=== PATIENT | female | born 1955 | race Caucasian/White ===

== ENCOUNTER → 2018-10-17 08:28 | Outpatient (CLI) | payer MEDICARE ==
[2015-12-07 13:44] VITALS: BMI 36.2
[~2018-10-17 08:28] MED LIST: ALDACTONE25 MG PO; ATARAX 25 MG TA25 MG PO; CARAFATE1 G PO; CARDURA2 MG PO; CATAPRES0.1 MG PO; CHRONULAC30 ML PO; EFFEXOR XR75 MG PO; GABAPENTIN100 MG PO; HYDROCODONE-APA1 TAB; HYDROCODONE-APA1 TAB PO; IPRAT-ALBUT 0.5-3 ML UPD; K-DUR20 MEQ; K-DUR20 MEQ PO; LASIX20 MG PO; LEVOXYL100 MCG PO; METOPROLOL TART50 MG PO; PATANOL 0.1 % OP5 ML EACH EYE; PRAVACHOL20 MG PO; PROAIR HFA8.5 GM INH; PROTONIX40 MG PO; SYNTHROID125 MCG PO; SYNTHROID75 MCG PO; TRAZODONE HCL150 MG PO
== END | disposition home or self-care (01) ==
LOC: D.US 10-08 07:30
DX: K76.9 Liver disease, unspecified (principal)

== ENCOUNTER → 2019-08-03 12:29 | Outpatient (CLI) | payer MEDICARE ==
[2015-12-07 13:44] VITALS: BMI 36.2
== END | disposition home or self-care (01) ==
LOC: D.MRI 12:29
PROVIDERS: ATTEND Family Medicine
DX: J45.909 Unspecified asthma, uncomplicated (principal)

== ENCOUNTER → 2019-08-19 13:04 | Outpatient (CLI) | payer MEDICARE ==
[2015-12-07 13:44] VITALS: BMI 36.2
== END | disposition home or self-care (01) ==
LOC: D.CT 08-17 09:30 → D.MRI 08-17 10:00 → D.CT 13:04
PROVIDERS: ATTEND Family Medicine
DX: I73.9 Peripheral vascular disease, unspecified (principal); M86.10 Other acute osteomyelitis, unspecified site

== ENCOUNTER 2019-09-30 10:21 | Outpatient (CLI) | payer MEDICARE ==
[~2019-09-30] VITALS: Ht 157.5 cm; Wt 61.4 kg
--- NOTE | ~2019-09-30 | HEMODYNAMI ---
PATIENT:LIBRADO CULVER MEDICAL RECORD: [id number] : 59 LOCATION:[facility] ADMISSION DATE: 09/30/19 Generatedon:09/30/201914:42 Patient name: LIBRADO CULVER Patient #: [id number] SSN: : 1955 Date of study: 09/30/2019 Page: Of Hemodynamic Procedure Report Patient Data Patient Demographics Procedure consent was obtained First Name: LIBRADO Gender: Female Last Name: PALOMO : 1955 [facility] Initial: OBIE Age: 63 year(s) Patient #: [id number] Race: Unknown Additional ID: [id number] Contact details Address: [address] [place] [address] State: [place] City: [facility] Zip code: [address] Past Medical History Allergies Allergen Reaction Date Comments Reported Other allergy 09/30/2019 penicillin, codeine, aspirin, latex, steroids Admission Admission Data Admission Date: 09/30/2019 Admission Time: 10:21 Procedure Procedure Types Cath Procedure Peripheral Cath Diagnostic Procedure Abd/Extremity Extremities Bilat Lower Extremity Procedure Description Procedure Date Procedure Date: 09/30/2019 Procedure Start Time: 13:55 Procedure End Time: 14:42 Procedure Staff Name Function Moris Sommers MD Performing Physician SHEILA JOHN RT Monitor Sada Contreras RN Nurse Radha Ely RN Nurse Santi Green RT Scrub Procedure Data Cath Procedure Fluoroscopy Diagnostic fluoroscopy Total fluoroscopy Time: 5.4 time: 5.4 min min Diagnostic fluoroscopy Total fluoroscopy dose: 512 dose: 512 mGy mGy Entry Location Entry Primary Successful Side Size (Fr) Upsize Upsize Entry Closure S uccessful Closure Location 1 (Fr) 2 (Fr) Remarks Device Remarks Femoral Right 6 Fr Mynx artery Mid-Length Child Support Officer 6Fr/7Fr Femoral Left 6 Fr Mynx artery Mid-Length Child Support Officer 6Fr/7Fr Diagnostic catheters Device Type Used For End Catheter Placement DIAGNOSTIC Pigtail 5Fr catheter ([id number]) Merit Impress KA 2 5Fr 40CM catheter ([id number]) Procedure Medications Medication Administration Route Dosage Heparin Flush Bag added to field 3 bags (1000units/500ml NS) Lidocaine 1% added to field 20 Versed I.V. 1 mg Fentanyl I.V. 50 mcg Versed I.V. 1 mg Fentanyl I.V. 50 mcg Heparin Bolus I.V. 3000 units Fentanyl I.V. 50 mcg Versed I.V. 0.5 mg Hemodynamics Rest Heart Rate: 71 (bpm) Snapshots Pre Cath Intra NCS Post Cath Vital Signs Time Heart Resp SPO2 etCO2 NIBP (mmHg) Rhythm Pain Sedation Rate (ipm) (%) (mmHg) Status Level (bpm) 13:42:01 62 19 100 40.6 137/75(115) NSR 0 (11) 10(A) , No pain 13:46:15 61 12 100 39.1 144/67(114) NSR 0 (11) 10(A) , No pain 13:50:23 59 10 100 39.1 124/100(115) NSR 0 (11) 10(A) , No pain 13:54:31 62 13 100 40.6 134/73(121) NSR 0 (11) 8(A) , No pain 13:58:45 71 11 99 33.8 107/66(100) NSR 0 (11) 8(A) , No pain 14:02:51 63 11 98 32.3 115/62(80) NSR 0 (11) 8(A) , No pain 14:07:00 68 11 96 24 98/56(72) NSR 0 (11) 8(A) , No pain 14:11:00 63 11 96 29.3 99/60(91) NSR 0 (11) 8(A) , No pain 14:15:04 66 12 96 33 108/58(74) NSR 0 (11) 8(A) , No pain 14:19:12 57 11 96 30 100/54(67) NSR 0 (11) 8(A) , No pain 14:24:11 70 32 98 41.3 122/62(114) NSR 0 (11) 8(A) , No pain 14:28:19 62 12 99 42.1 142/72(130) NSR 0 (11) 8(A) , No pain 14:32:32 75 11 99 48.1 144/70(111) NSR 0 (11) 8(A) , No pain 14:36:44 72 9 98 45.1 130/81(92) NSR 0 (11) 10(A) , No pain 14:40:52 63 8 100 41.4 143/76(104) NSR 0 (11) 10(A) , No pain Medications Time Medication Route Dose Verified Delivered Reason Notes Effec tiveness by by 13:49:12 Heparin Flush added 3 Moris Subramanian used for Bag to bags Matthieu Sommers procedure (1000units/500ml field MD SHEPARD NS) 13:49:31 Lidocaine 1% added 20ml Moris Subramanian used for to vial Matthieumary Sommers procedure field MD SHEPARD 13:53:53 Versed I.V. 1 mg Moris Tomlin for Matthieumary Contreras RN sedation 13:54:08 Fentanyl I.V. 50 Moris Arti for mcg Matthieumary Medinaer RN sedation 14:00:01 Versed I.V. 1 mg Moris Tmolin for Matthieu Contreras RN sedation 14:00:09 Fentanyl I.V. 50 Moris Arti for mcg Matthieumary Medinaer RN sedation 14:04:15 Heparin Bolus I.V. 3000 Moris Tomlin used for units Matthieumary Contreras pension agent 14:32:40 Fentanyl I.V. 50 Moris Arti for mcg Matthieumary Medinaer RN sedation 14:32:49 Versed I.V. 0.5 Moris Arti for mg Matthieumary Medinaer RN sedation Procedure Log Time Note 13:29:36 Sada Contreras RN sent for patient. Start room use. 13:29:45 Time tracking: Regular hours (M-F 7:00 - 5:00) 13:29:50 Plan of Care:Hemodynamics will remain stable., Cardiac rhythm will remain stable., Comfort level will be maintained., Respiratory function will remain adequate., Patient/ family verbilizes understanding of procedure., Procedure tolerated without complication., Recovers from procedure without complications.. 13:29:56 Patient received from Outpatients to IR Alert and oriented. Tansferred to table in Supine position. 13:29:58 Signed procedure consent form obtained from patient. 13:30:00 Warm blankets applied, and messi hugger turned on for patient comfort. 13:30:00 Correct patient and procedure confirmed by team. 13:30:01 ECG and BP/O2 sat monitors applied to patient. 13:30:01 - 13:30:06 H&P Date Dictated: 09/30/2019 H&P Addendum completed by physician on day of procedure. (MUST COMPLETE FOR ALL OUTPATIENTS). 13:30:08 Pre-procedure instructions explained to patient. 13:30:09 Pre-op teaching completed and patient verbalized understanding. 13:30:11 Patient NPO since Midnight. 13:31:13 Patient allergic to Other allergypenicillin, codeine, aspirin, latex, steroids 13:31:16 Is the patient allergic to Iodine/contrast media? No. 13:32:06 Is patient on blood thinner?No 13:32:09 Patient diabetic? No. 13:32:11 - 13:32:13 ----Pre-sedation anethsthesia assessment.---- 13:32:17 Snore? Yes 13:32:18 Sleep apnea? No 13:32:19 Deviated septum? No 13:32:19 Opens mouth fully? Yes 13:32:21 Sticks out tongue? Yes 13:32:23 Airway obstruction? No ? 13:32:26 Dentures? No ? 13:33:02 IV patent on arrival in left forearm with 0.9% NaCl at [facility]. 13:33:13 Pre procedure: left dorsailis pedis pulse Doppler 13:33:19 Pre procedure: left posterior tibial pulse Doppler 13:33:23 Pre procedure: right posterior tibial pulse Doppler 13:33:29 Pre procedure: right dorsailis pedis pulse 0-Absent 13:34:09 Bilateral groins area was prepped with chlora-prep and draped in steril e fashion 13:34:11 - 13:34:14 Use device set IR Diagnostic 13:34:16 Tegaderm 4 x 4 ([id number]) opened to sterile field. 13:34:16 Sterile Angiographic Pack opened to sterile field. 13:34:17 Bag Decanter (2002S) opened to sterile field. 13:34:20 ACIST Hand Control (31554) opened to sterile field. 13:34:21 ACIST Manifold (64161) opened to sterile field. 13:34:22 ACIST Syringe (24088) opened to sterile field. 13:34:52 A DIAGNOSTIC Pigtail 5Fr catheter ([id number]) opened to sterile field. 13:34:54 BENTSON 145cm wire ([id number]) opened to sterile field. 13:34:55 MICROPUNCTURE 4FR Ravti (Z88379) opened to sterile field. 13:35:15 - 13:40:47 Vital chart was started 13:40:49 Baseline sample Acquired. 13:40:50 Full Disclosure recording started 13:49:12 Heparin Flush Bag (1000units/500ml NS) 3 bags added to field was administered by Moris Sommers MD; used for procedure; Verbal order read back and verified. 13:49:31 Lidocaine 1% 20ml vial added to field was administered by Moris fairchild MD; used for procedure; Verbal order read back and verified. 13:49:34 SHEATH 6FR Brite Tip 35cm (008394Z) opened to sterile field. 13:49:34 SHEATH 6FR Brite Tip 35cm ([id number]) opened to sterile field. 13:49:37 - 13:49:41 Physician arrived 13:50:17 --------ALL STOP TIME OUT------ 13:51:13 Bilateral groins site verified by team. 13:51:47 3b) 30-44 Moderately reduced kidney function. 13:52:19 - 13:53:53 Versed 1 mg I.V. was administered by Sada Contreras RN; for sedation; Verbal order read back and verified. 13:54:08 Fentanyl 50 mcg I.V. was administered by Sada Contreras RN; for sedation; Verbal order read back and verified. 13:55:11 Procedure started. 13:55:23 Local anesthetic to right femoral artery with Lidocaine 1% by Moris Sommers MD.INITIAL ACCESS ONLY 13:56:34 Access obtained with 4Fr micropunture. 13:56:48 ZHENG 260 wire ([id number]) opened to sterile field. 13:56:49 ZHENG 260 wire (O30601) opened to sterile field. 13:59:48 AMPLATZ Super Stiff 75cm wire ([id number]) opened to sterile field. 14:00:01 Versed 1 mg I.V. was administered by Sada Contreras RN; for sedation; Verbal order read back and verified. 14:00:09 Fentanyl 50 mcg I.V. was administered by Sada Contreras RN; for sedation; Verbal order read back and verified. 14:00:35 Local anesthetic to left femerol artery with Lidocaine 1% by Moris Sommers MD.ADDITIONAL ACCESS 14:01:11 A 6 Fr Mid-Length sheath was inserted into the Right Femoral artery 14:01:42 Access obtained with 4Fr micropunture left femoral artery 14:04:15 Heparin Bolus 3000 units I.V. was administered by Sada Contreras RN; used for procedure; Verbal order read back and verified. 14::42 A 6 Fr Mid-Length sheath was inserted into the Left Femoral artery 14:07:13 INFLATOR BasixTOUCH (ZR9879) opened to sterile field. 14:07:13 INFLATOR BasixTOUCH (EF2217) opened to sterile field. 14:07:14 ROADRUNNER .035 145 glide wire (Z26215) opened to sterile field. 14:07:21 A [facility] KA 2 5Fr 40CM catheter ([id number]) opened to sterile field. 14:12:24 Inflate balloon Inflation number: 1 A Evercross 5 x 6 x 135 Balloon ([id number]) was prepped and advanced across the Undefined1 , then inflated. 14:16:49 Place stent Inflation Number: 2 A Visipro 8 x 27 x 135 Stent ([id number]) was prepped and advanced across the Undefined1 . The stent was deployed . 14:21:57 Place stent Inflation Number: 1 A Visipro 8 x 57 x 135 Stent ([id number]) was prepped and advanced across the Undefined2 . The stent was deployed . 14:27:12 Sheath removed intact; hemostasis achieved with Mynx Child Support Officer 6Fr/7Fr to th e Right Femoral artery. 14:27:19 Sheath removed intact; hemostasis achieved with Mynx Child Support Officer 6Fr/7Fr to th e Left Femoral artery. 14:27:30 MYNX BAKE ROOM WORKER 6FR/7FR (DZ0765) opened to sterile field. 14:27:30 MYNX BAKE ROOM WORKER 6FR/7FR (YB6374) opened to sterile field. 14:32:40 Fentanyl 50 mcg I.V. was administered by Sada Contreras RN; for sedation; Verbal order read back and verified. 14:32:49 Versed 0.5 mg I.V. was administered by Sada Contreras RN; for sedation; Verbal order read back and verified. 14:35:14 Procedure ended.(Physican Out) 14:35:28 Fluoroscopy time 05.40 minutes. 14:35:36 Fluoroscopy dose: 512 mGy 14:35:36 Flurop Dose total: 512 14:37:57 Post right femoral artery:stable 14:38:03 Post left femerol artery:stable 14:38:55 Post procedure instruction explained to patient.Patient verbalizes understanding. 14:38:56 Patient needs reinforcement of post procedure teaching. 14:38:58 Procedure and supply charges have been captured, reviewed, submitted an d are correct. 14:41:41 Vital chart was stopped 14:42:08 See physician's report for complete and final results. 14:42:11 Procedure ended. 14:42:11 Full Disclosure recording stopped Intervention Summary Intervention Notes Time ActionType Lesion and Equipment Used Action# Pressure Duration Attributes 14:12:24 Inflate Undefined1 Evercross 5 x 6 x 1 0 00:00 balloon 135 Balloon ([id number]) 14:16:49 Place stent Undefined1 Visipro 8 x 27 x 2 0 00:00 135 Stent ([id number]) 14:21:57 Place stent Undefined2 Visipro 8 x 57 x 1 0 00:00 135 Stent ([id number]) Device Usage Item Name Manufacture Quantity Catalog Number [facility] nt Minimal Lot# / Charge Number Stock Stock Serial# Code Tegaderm 4 x 4 3M 1 [id number] [id number] 2 5 (1626W) Sterile Cardinal 1 [id number] 38023 8 5 Angiographic Pack Health Bag Decanter Microtek 1 2001S 586939 93208 38096 1 5 (2001S) Medical Inc. ACIST Hand Acist 1 11615 926028 372371 79143 3 5 Control (04927) Medical Systems Inc ACIST Manifold Acist 1 60337 403035 135460 39917 9 5 (79509) Medical Systems Inc ACIST Syringe Acist 1 64056 466621 275894 42501 2 20 (69107) Medical Systems Inc DIAGNOSTIC Cardinal 1 [id number] 210369 406458 37820 2 5 Pigtail 5Fr Health catheter (597177S) BENTSON 145cm Opsmatic 1 Y98973 421242 13101 7 5 wire ([id number]) MICROPUNCTURE 4FR Opsmatic 1 U89253 852811 311874 32352 7 5 Cook (G22774) SHEATH 6FR Brite Cardinal 2 [id number] 586607 017927 36280 0 1 Tip 35cm Health (016283E) ZHENG 260 wire Cook Medical 2 T95798 937331 21368 83014 8 5 (G20778) AMPLATZ Super [place] 1 [id number] 754345 498415 06980 0 5 [id number] Stiff 75cm wire Scientific ([id number]) INFLATOR Merit 2 QV7750 792567 607131 35272 5 5 [facility] Medical (VV7372) ROADRUNNER .035 Cook Medical 1 G94142 972256 344517 83341 3 5 145 glide wire (V98625) Merit Impress KA Merit 1 [id number] 852173 60049 5 5 2 5Fr 40CM Medical catheter ([id number]) Evercross 5 x 6 x Medtronic 1 [id number] 454204 810657 14867 0 5 135 Balloon ([id number]) Visipro 8 x 27 x Medtronic 1 [id number] 246138 485062 05782 6 5 135 Stent ([id number]) Visipro 8 x 57 x Medtronic 1 [id number] 789772 972014 56405 7 5 135 Stent 35 ([id number]) MYNX BAKE ROOM WORKER 6FR/7FR Access 2 NT3051 889209 04440 2 5 ([id number]) Closure Signature Audit Wayne Stage Time Signature Unsigned Intra-Procedure 09/30/2019 SHEILA JOHN RT 2:42:43 PM (R) [facility] [address] [place] [address]
[2019-09-30 11:13] LABS: BASOPHILS 0.2 % (0-2); EOSINOPHILS 1.9 % (0-7); HEMATOCRIT 42.6 % (36.0-48.0); HEMOGLOBIN 13.8 g/dL (12-16); IMMATURE GRANULOCYTES 0.2 % (0-5); LYMPHOCYTES 32.8 % (15-50); MCH 31.7 pg (26.0-34.0); MCHC 32.4 g/dL (31.0-37.0); MCV 97.9 fL (80.0-100.0); MEAN PLATELET VOLUME 10.3 fL (7.4-10.4); MONOCYTES 7.5 % (2-11); NEUTROPHILS 57.4 % (40-80); RBC 4.35 10x6/uL (4.00-5.40); RDW 14.5 % (11.5-14.5); WBC 6.4 10x3/uL (4.8-10.8)
[2019-09-30 11:14] LABS: PLATELET COUNT 292 10x3/uL (130-400)
[2019-09-30 11:17] VITALS: BP 109/55; Ht 157.5 cm; Wt 61.4 kg
[2019-09-30 11:38] LABS: APTT 28.9 SECONDS (22.8-39.4); INR 0.95 (0.85-1.17); PROTIME 12.6 SECONDS (11.6-15.0)
[2019-09-30 11:39] LABS: ANION GAP 9.9 mmol/L (8-16); CALCIUM 8.9 mg/dL (8.5-10.1); CARBON DIOXIDE 30.5 mmol/L (21.0-32.0); CREATININE - SERUM 1.3 mg/dL (0.6-1.3); POTASSIUM - SERUM 4.4 mmol/L (3.5-5.1)
[2019-09-30] MEDS ORDERED: PLAVIX75 MG PO (14:47)
--- NOTE | 2019-09-30 15:42 | NUR ---
1500-REC'D FROM IR. AWAKE AND ALERT, NO DISTRESS, VSS. DRESSINGS TO BILATERAL GROIN CDI.DENIES PAIN. POSITIVE CE PEDAL PULSES.
--- NOTE | 2019-09-30 15:45 | NUR ---
1540-FINGER FOOD TRAY TO ROOM. DRESSINGS CDI. DENIES PAIN. VSS. CL IN EASY REACH.
--- NOTE | 2019-09-30 16:04 | NUR ---
1600-VOIDED ON BEDPAN WITHOUT COMPLICATIONS
--- NOTE | 2019-09-30 18:47 | NUR ---
1615 IV REMOVED AND PRESSURE HELD 10MIN. PT ON PLAVIX. INSTRUCTIONS GIVEN AND ASSITED GOING TO BATHROOM. BALANCE UNSTEADY AND STATED SHE ALWAYS IS UNSTEADY. ENCOURAGED PT TO USE A WALKER OR CANE AT HOME. DRESSINGS INTACT W/O SWELLING OR DRAINAGE
== END 2019-09-30 18:49 | disposition home or self-care (01) ==
LOC: D.RAD 10:21 → D.SP 10:21 → D.RAD 13:00 → D.SP 18:49
PROVIDERS: ATTEND Radiology Diagnostic Radiology
DX: I70.213 Atherosclerosis of native arteries of extremities with intermittent claudication, bilateral legs (principal); Z72.0 Tobacco use